=== PATIENT | female | born 1960 | race Caucasian/White ===

== ENCOUNTER → 2016-10-15 | Outpatient (CLI) | payer OTHER ==
--- NOTE | 2016-10-15 12:36 | Diagnostic Imaging Report ---
EXAMINATION: Three views of the right shoulder. INDICATION: Right shoulder sprain. FINDINGS: There is no fracture, dislocation, or radiopaque foreign body. There is mild degenerative change seen in the right AC joint with small inferior osteophytes. The glenohumeral joint appears unremarkable. IMPRESSION: Mild AC joint osteoarthritis. Dictated by: Dictated on workstation # [id number]
== END ==
LOC: RAD 08:16
PROVIDERS: ATTEND Family Medicine
DX: S43.401A Unspecified sprain of right shoulder joint, initial encounter (principal); X58.XXXA Exposure to other specified factors, initial encounter; Y99.8 Other external cause status
CPT/HCPCS: 73030

== ENCOUNTER 2016-11-13 08:30 | Outpatient (RCR) | payer OTHER | END 2016-12-13 13:27 | disposition home or self-care (01) | PROVIDERS: ATTEND Family Medicine | DX: S43.401A Unspecified sprain of right shoulder joint, initial encounter (principal); V87.8XXA Person injured in other specified noncollision transport accidents involving motor vehicle (traffic), initial encounter; Y99.8 Other external cause status ==

== ENCOUNTER → 2016-12-06 | Outpatient (CLI) | payer OTHER ==
--- NOTE | 2016-12-06 15:56 | Diagnostic Imaging Report ---
PROCEDURE: MRI right joint upper extremity without contrast. TECHNIQUE: Multiplanar, multisequence MR imaging of the right shoulder was performed without contrast. COMPARISON: Right shoulder radiographs of 10/15/2016. INDICATION: Right shoulder pain. FINDINGS: Rotator cuff: No high-grade partial or full-thickness rotator cuff tear. Moderate tendinopathy of the subscapularis and anterior supraspinatus. There is likely low-grade partial-thickness interstitial-type tear of the anteriormost insertional fibers of the supraspinatus which measures less than 1 cm in AP direction. No rotator cuff atrophy. Glenoid labrum: By non-arthrogram imaging, the glenoid labrum appears intact. No para-labral cyst. Long head of biceps: Long head of biceps is normally positioned within the bicipital groove. The intracapsular segment is intact. Bones and cartilage: Humeral head is normal in morphology without fracture or focal osseous lesion. No glenohumeral chondromalacia. Mild degenerative capsular hypertrophy of the acromioclavicular joint. Soft tissues: No glenohumeral joint effusion. No MRI findings to suggest adhesive capsulitis. There is a small amount of fluid distending the subacromial and subdeltoid space which has mild heterogeneous intensity indicative of bursitis. IMPRESSION: 1. Supraspinatus and subscapularis tendinopathy. There is associated superimposed low-grade partial-thickness interstitial tearing of the anteriormost insertional fibers of the supraspinatus. 2. Subacromial and subdeltoid bursitis. 3. Long head of biceps is normal. Dictated by: Dictated on workstation # [id number]
== END ==
LOC: RAD 13:31
PROVIDERS: ATTEND Family Medicine
DX: M75.111 Incomplete rotator cuff tear or rupture of right shoulder, not specified as traumatic (principal); M75.81 Other shoulder lesions, right shoulder; M75.51 Bursitis of right shoulder
CPT/HCPCS: 73221

== ENCOUNTER → 2022-02-05 | Outpatient (CLI) | payer OTHER ==
--- NOTE | 2022-02-05 18:35 | Diagnostic Imaging Report ---
CLINICAL INDICATIONS: Patient with pain on left side. Patient face planted onto metal shelf this morning. Exam: X-ray of the skull, multiple views, and lateral nasal bone views. Comparison: None. Findings and impression: 1: There is no craniofacial fracture. The nasal bone is intact. Of note, x-rays of the skull have low sensitivity for subtle craniofacial fractures. If there is continued concern, maxillofacial CT scan would better evaluate. 2: The visualized paranasal sinuses are grossly unremarkable. 3.: Patient is edentulous. Dictated by: Dictated on workstation # [id number]
--- NOTE | 2022-02-05 19:29 | Diagnostic Imaging Report ---
INDICATION: Injury, pain. FINDINGS: Two views of the facial bones showed no orbital emphysema or sinus air-fluid level. No fracture deformity apparent. IMPRESSION: No hemo-sinus or fracture deformity apparent at 2 view facial bones. Dictated by: Dictated on workstation # [id number]
== END ==
LOC: RAD 14:31
PROVIDERS: ATTEND Registered Nurse Critical Care Medicine
DX: S00.33XA Contusion of nose, initial encounter (principal); S00.83XA Contusion of other part of head, initial encounter
CPT/HCPCS: 70140; 70160